=== PATIENT | male | born 1955 | race Caucasian/White ===

== ENCOUNTER 2018-02-18 09:01 | Emergency (ER) | payer SELFPAY ==
--- NOTE | 2018-02-18 09:58 | ED Physician Documentation ---
PD HPI ABD PAIN - Stated complaint Stated Complaint: ABD PX - Chief complaint Chief Complaint: Abd Pain - History obtained from History obtained from: Patient - History of Present Illness Timing - onset: Today Quality: Pain Similar symptoms before: Diagnosis (Right inguinal hernia.) - Additional information Additional information: The patient is a 62-year-old male with a history of reducible right inguinal hernia, who presents with abdominal pain that started this morning and was quite severe. He was initially unable to reduce the hernia. He denies vomiting, fever, or urinary symptoms. Despite having the inguinal hernia for several years, he has never had pain this severe in the past. His pain has improved during his transport to the emergency department. Review of Systems Constitutional: denies: Fever Nose: denies: Congestion Cardiac: denies: Chest pain / pressure Respiratory: denies: Dyspnea, Cough GI: reports: Abdominal Pain. denies: Vomiting, Diarrhea, Bloody / black stool : denies: Dysuria Skin: denies: Rash Musculoskeletal: denies: Back pain PD PAST MEDICAL HISTORY - Past Medical History Cardiovascular: Hypertension Endocrine/Autoimmune: None - Present Medications Home Medications: Ambulatory Orders Medication Instructions Recorded Confirmed Lisinopril 10 mg PO BID 02/18/18 02/18/18 - Allergies Allergies/Adverse Reactions: Allergies Allergy/AdvReac Type Severity Reaction Status Date / Time No Known Drug Allergies Allergy Verified 02/18/18 09:11 - Social History Does the pt smoke?: No PD ED PE NORMAL - Vitals Vital signs reviewed: Yes (initially hypertensive.) - General General: Alert and oriented X 3, Well developed/nourished - HEENT HEENT: Atraumatic, Moist mucous membranes - Neck Neck: No adenopathy, No JVD - Cardiac Cardiac: RRR, No murmur - Respiratory Respiratory: No respiratory distress, Clear bilaterally - Abdomen Abdomen: Normal bowel sounds, Soft, Non tender, Non distended, Other (Right inguinal hernia is present, and is easily reduced. His abdominal exam is currently benign.) - Male Male : Other (Reducible right inguinal hernia.) - Back Back: No CVA TTP - Derm Derm: No rash - Extremities Extremities: No edema - Neuro Neuro: Alert and oriented X 3, Normal speech Results - Vitals Vitals: Vital Signs - 24 hr 02/18/18 02/18/18 09:06 10:16 Temperature 36.0 C L Heart Rate 64 77 Respiratory 18 15 Rate Blood Pressure 138/103 H 146/77 H O2 Saturation 100 98 Oxygen O2 Source Room air PD MEDICAL DECISION MAKING - ED course Complexity details: considered differential, d/w patient, d/w family ED course: The patient's abdominal pain is associated with a right inguinal hernia that has subsequently reduced. He is asymptomatic at the time of my examination in the emergency department. No further clinical workup is indicated at this time. I discussed with him and his son the diagnosis, the importance of follow-up with general surgery for elective operative intervention, as well as potentially worrisome signs or symptoms that should prompt reevaluation in the emergency department. Departure - Departure Disposition: 01 Home, Self Care Clinical Impression: Inguinal hernia Qualifiers: Obstruction and gangrene presence: without obstruction or gangrene Laterality: unilateral Recurrence: recurrent Qualified Code(s): K40.91 - Unilateral inguinal hernia, without obstruction or gangrene, recurrent Condition: Stable Instructions: ED Hernia Inguinal Follow-Up: [facility] [Provider Group] Camden Tracy ND [Physician No Access] - Comments: Avoid heavy lifting. Call surgeon to schedule appointment for hernia repair. Return to the emergency department if you develop increasing abdominal pain, persistent vomiting, or otherwise worsening symptoms. Discharge Date/Time: 02/18/18 10:17
[2018-02-18 10:17] VITALS: BP 146/77
== END 2018-02-18 10:17 | disposition home or self-care (01) ==
LOC: ED 09:01
DX: K40.91 Unilateral inguinal hernia, without obstruction or gangrene, recurrent (principal); I10 Essential (primary) hypertension
CPT/HCPCS: 99282; 99283